=== PATIENT | female | born 1975 | race Caucasian/White ===

== ENCOUNTER → 2016-07-29 | Outpatient (CLI) | payer OTHER ==
[2016-07-29 18:02] LABS: Basophils % (A) 0 %; CH 28.7; CHCM 32.8; Eosinophils # (A) 0.1 k/uL (0-0.7); Eosinophils % (A) 1 %; HCT 44.3 % (34.0-46.0); HDW 2.52; HGB 14.3 gm/dL (11.4-16.0); Luc # (Auto) 0.15; Luc % (Auto) 2; Lymphocytes # (A) 1.8 k/uL (1.0-4.8); Lymphocytes % (A) 19 %; MCH 28.4 pg (25.0-35.0); MCHC 32.3 g/dL (31.0-37.0); MCV 87.9 fL (80.0-100.0); Mean Platelet Volume 7.7; Monocytes # (A) 0.4 k/uL (0-1.0); Monocytes % (A) 4 %; Neutrophils # (A) 7.4 k/uL (1.3-7.7); Neutrophils % (A) 75 %; RBC 5.04 m/uL (3.80-5.40); RDW 12.8 % (11.5-15.5); WBC 9.9 k/uL (3.8-10.6); WBC (Perox) 10.52
[2016-07-29 18:21] LABS: ALT 23 U/L (9-52); AST 28 U/L (14-36); Alkaline Phosphatase 63 U/L (38-126); Anion Gap 13 mmol/L; Blood Urea Nitrogen 17 mg/dL (7-17); Calcium 9.7 mg/dL (8.4-10.2); Carbon Dioxide 23 mmol/L (22-30); Chloride 107 mmol/L (98-107); Glucose 110 mg/dL (74-99); Non-African American GFR(MDRD) >60 (>60 ml/min/1.73 sqM); Potassium 4.2 mmol/L (3.5-5.1); Sodium 143 mmol/L (137-145); Total Bilirubin 0.6 mg/dL (0.2-1.3); Total Protein 7.6 g/dL (6.3-8.2)
== END | disposition home or self-care (01) ==
LOC: MMGSC 15:31
PROVIDERS: ATTEND Family Medicine
DX: R13.10 Dysphagia, unspecified (principal); R16.1 Splenomegaly, not elsewhere classified
CPT/HCPCS: 36415; 80053; 84439; 84443; 85025

== ENCOUNTER → 2017-10-04 | Outpatient (CLI) | payer BC ==
--- NOTE | 2017-10-04 18:09 | CT ---
EXAMINATION TYPE: CT brain wo/w con DATE OF EXAM: 10/04/2017 COMPARISON: NONE HISTORY: RODRIGUEZ WITH FRONTAL SINUS PRESSURE and pain X2 MONTHS CT DLP: 7.3 mGycm Automated Exposure Control for Dose Reduction was Utilized. TECHNIQUE: CT scan of the head is performed without and with IV Contrast, patient injected with 100 m L of Isovue 300. FINDINGS: Noncontrast images show no acute intracranial hemorrhage or midline shift. The ventricles and sulci are within normal limits in size. Castaneda-white matter differentiation is maintained. Postcon trast images show no suspicious enhancing intraparenchymal mass. The globes are intact and the visual ized sinuses are clear. IMPRESSION: No suspicious finding is seen to account for patient's symptoms.
== END | disposition home or self-care (01) ==
LOC: RADCTMAIN 17:13
PROVIDERS: ATTEND Family Medicine
DX: R51 Headache (principal)
CPT/HCPCS: 70470; Q9967

== ENCOUNTER 2019-06-13 04:37 | Emergency (ER) | payer BC ==
--- NOTE | 2019-06-13 05:26 | ED ---
URI HPI - General Chief Complaint: Upper Respiratory Infection Stated Complaint: URI Time Seen by Provider: 06/13/19 05:06 Source: patient, family Mode of arrival: ambulatory Limitations: no limitations - History of Present Illness Initial Comments: This patient is 43-year-old woman who presents to be evaluated for congestion, cough, myalgias, and bilateral rib pains. She states that her symptoms began approximately 4 days ago. She was seen at a clinic and was prescribed Cefdinir on June 11. The patient states that she has been taking this as directed but has not noted any improvement at all. She continues to have frequent cough. The cough does occasionally previous yellow sputum. She has been having bilateral rib pains. MD Complaint: cough -: days(s) Severity: moderate Consistency: constant Improves With: nothing Worsens With: other (Cough) Associated Symptoms: myalgias, nasal congestion, cough, shortness of breath, other (Rib pains) Treatments Prior to Arrival: Ibuprofen, antibiotics - Related Data Home Medications Medication Instructions Recorded Confirmed Omeprazole 20 mg PO DAILY 03/10/16 03/11/16 Previous Rx's Medication Instructions Recorded Ondansetron HCl [Zofran] 4 mg PO Q6HR PRN #10 tab 02/17/16 guaiFENesin-Coden 100-10MG/5ML 5 - 10 ml PO Q6H PRN 3 Days #120 ml 06/13/19 [Robitussin AC] Allergies Allergy/AdvReac Type Severity Reaction Status Date / Time morphine Allergy Rash/Hives Verified 06/13/19 04:46 Sulfa (Sulfonamide Allergy Rash/Hives Verified 06/13/19 04:46 Antibiotics) Review of Systems ROS Statement: Those systems with pertinent positive or pertinent negative responses have been documented in the HPI. ROS Other: All systems not noted in ROS Statement are negative. Constitutional: Denies: fever, chills Respiratory: Reports: cough, dyspnea. Denies: wheezes, hemoptysis Cardiovascular: Reports: chest pain. Denies: palpitations, orthopnea, edema, syncope Gastrointestinal: Denies: abdominal pain, vomiting, diarrhea Genitourinary: Denies: dysuria, hematuria Musculoskeletal: Reports: back pain Skin: Denies: rash Neurological: Denies: headache, weakness Past Medical History Past Medical History: Asthma History of Any Multi-Drug Resistant Organisms: None Reported Past Surgical History: Cholecystectomy, Tonsillectomy Additional Past Surgical History / Comment(s): D&C Past Anesthesia/Blood Transfusion Reactions: No Reported Reaction Past Psychological History: No Psychological Hx Reported Smoking Status: Former smoker Past Alcohol Use History: Occasional Past Drug Use History: None Reported - Past Family History Mother Family Medical History: Cancer General Exam Limitations: no limitations General appearance: alert, in no apparent distress Head exam: Present: atraumatic, normocephalic Eye exam: Present: normal appearance. Absent: scleral icterus, conjunctival injection ENT exam: Present: normal oropharynx Neck exam: Present: normal inspection, full ROM Respiratory exam: Present: chest wall tenderness. Absent: respiratory distress, wheezes, rales, rhonchi, stridor, accessory muscle use Cardiovascular Exam: Present: regular rate, normal rhythm, normal heart sounds. Absent: systolic murmur, diastolic murmur, rubs, gallop GI/Abdominal exam: Present: soft. Absent: distended, tenderness, guarding, rebound, rigid, mass Extremities exam: Present: normal inspection, normal capillary refill. Absent: pedal edema, calf tenderness Back exam: Present: normal inspection. Absent: CVA tenderness (R), CVA tenderness (L) Neurological exam: Present: alert Skin exam: Present: warm, dry, intact, normal color. Absent: rash Course Vital Signs 06/13/19 06/13/19 04:41 05:52 Temperature 99.4 F Pulse Rate 98 Respiratory 18 24 Rate Blood Pressure 130/90 O2 Sat by Pulse 96 Oximetry Medical Decision Making - Lab Data Lab Results 06/13/19 Range/Units 05:50 Influenza Type A RNA Not Detected (Not Detectd) Influenza Type B (PCR) Detected H (Not Detectd) Disposition Clinical Impression: Influenza B Disposition: HOME SELF-CARE Condition: Good Instructions (If sedation given, give patient instructions): Influenza (ED) Prescriptions: guaiFENesin-Coden 100-10MG/5ML [Robitussin AC] 5 - 10 ml PO Q6H PRN 3 Days #120 ml PRN Reason: Cough Is patient prescribed a controlled substance at d/c from ED?: Yes When asked, does pt state using other controlled substances?: No If prescribed controlled substance>3 days was MAPS reviewed?: Prescribed <3 Days If opioid is for acute pain is fill amount 7 days or less?: Yes If Rx opioid, was Start Talking consent form obtained?: Yes Referrals: None,Stated [Primary Care Provider] - 1-2 days
--- NOTE | 2019-06-13 05:34 | XR ---
EXAM: XR Chest, 2 Views CLINICAL HISTORY: Cough congestion chest tightness TECHNIQUE: Frontal and lateral views of the chest. COMPARISON: No relevant prior studies available. FINDINGS: Lungs: No lobar consolidation. The pulmonary vasculature is radiographically unremarkable. Pleural space: Unremarkable. No pneumothorax. No large pleural effusion. Heart: Unremarkable. No cardiomegaly. Mediastinum: Unremarkable. No significant abnormality identified. The trachea is midline. Bones/joints: Unremarkable. IMPRESSION: No focal consolidation or acute cardiopulmonary process identified.
[2019-06-13] MEDS ORDERED: HYDROcodone/APAP 5-325MG 1 EACH TAB PO STA (06:23)
[2019-06-13 06:39] VITALS: BP 143/77; PULSE 71; RESP 20; TEMP 98
== END 2019-06-13 06:38 | disposition home or self-care (01) ==
LOC: EC 04:37
DX: J10.1 Influenza due to other identified influenza virus with other respiratory manifestations (principal); Z87.891 Personal history of nicotine dependence; Z88.2 Allergy status to sulfonamides; Z88.5 Allergy status to narcotic agent; Z79.899 Other long term (current) drug therapy
CPT/HCPCS: 71046; 87502; 99285

== ENCOUNTER 2020-09-11 09:42 | Emergency (ER) | payer BC ==
[2020-09-11 09:58] VITALS: TEMP 99.8
--- NOTE | 2020-09-11 10:55 | XR ---
EXAMINATION TYPE: XR chest 1V portable DATE OF EXAM: 09/11/2020 COMPARISON: 06/13/19 HISTORY: Suspected COVID-19 pneumonia TECHNIQUE: Single frontal view of the chest is obtained. FINDINGS: Patchy perihilar and basilar infiltrates compatible with underlying pneumonia. The cardiac silhouette size is within normal limits. The osseous structures are intact. IMPRESSION: 1. Patchy perihilar and basilar infiltrates compatible with underlying pneumonia.
[2020-09-11 10:56] LABS: Basophils % (A) 1 %; Eosinophils % (A) 0 %; HGB 14.7 gm/dL (11.4-16.0); Lymphocytes # (A) 0.6 k/uL (1.0-4.8); Lymphocytes % (A) 11 %; MCHC 34.9 g/dL (31.0-37.0); MCV 86.1 fL (80.0-100.0); Monocytes # (A) 0.2 k/uL (0-1.0); Monocytes % (A) 3 %; Neutrophils # (A) 4.6 k/uL (1.3-7.7); Neutrophils % (A) 84 %; Platelet Count 174 k/uL (150-450); RBC 4.88 m/uL (3.80-5.40); RDW 13.3 % (11.5-15.5); WBC 5.4 k/uL (3.8-10.6)
[2020-09-11 11:10] LABS: ALT 33 U/L (4-34); AST 46 U/L (14-36); African American GFR (CKD) >90 (>60 ml/min/1.73 sqM); Albumin 4.1 g/dL (3.5-5.0); Alkaline Phosphatase 76 U/L (38-126); Anion Gap 7 mmol/L; Blood Urea Nitrogen 12 mg/dL (7-17); C Reactive Protein 47.3 mg/L (<10.0); Calcium 8.6 mg/dL (8.4-10.2); Carbon Dioxide 29 mmol/L (22-30); Chloride 100 mmol/L (98-107); Glucose 102 mg/dL (74-99); Non-African American GFR(CKD) 85 (>60 ml/min/1.73 sqM); Potassium 4.1 mmol/L (3.5-5.1); Sodium 136 mmol/L (137-145); Total Bilirubin 0.6 mg/dL (0.2-1.3); Total Protein 6.9 g/dL (6.3-8.2)
[2020-09-11] MEDS ORDERED: DEXAMETHASONE SOD PHOSPHATE 4 MG/ML 1 ML VIAL IV STA (12:29)
--- NOTE | 2020-09-11 12:51 | ED ---
General Adult HPI - General Chief complaint: Shortness of Breath Stated complaint: Covid+/SOB/cough Time Seen by Provider: 09/11/20 09:51 Source: family, EMS Mode of arrival: EMS Limitations: no limitations - History of Present Illness Initial comments: 45-year-old female with a past medical history of asthma presents to the emergency room for a chief complaint of shortness of breath. Patient reports that she tested positive for watson virus 7 days ago. Patient states she has had symptoms for about 7 days. States his cough and congestion. It did start to improve however over the past few days the cough worsened. She feels somewhat short of breath. Denies chest pain aside from when coughing or moving. Patient has had fevers on and off.Patient has no other complaints at this time including chest pain, abdominal pain, nausea or vomiting, headache, or visual changes. - Related Data Home Medications Medication Instructions Recorded Confirmed Omeprazole 20 mg PO DAILY 03/10/16 03/11/16 Previous Rx's Medication Instructions Recorded Ondansetron HCl [Zofran] 4 mg PO Q6HR PRN #10 tab 02/17/16 guaiFENesin-Coden 100-10MG/5ML 5 - 10 ml PO Q6H PRN 3 Days #120 ml 06/13/19 [Robitussin AC] Albuterol Inhaler [Ventolin Hfa 2 puff INHALATION RT-QID PRN #1 09/11/20 Inhaler] inhaler Benzonatate [Tessalon Perles] 200 mg PO Q8H PRN #30 capsule 09/11/20 Dexamethasone [Decadron] 6 mg PO DAILY #6 tablet 09/11/20 Allergies Allergy/AdvReac Type Severity Reaction Status Date / Time morphine Allergy Rash/Hives Verified 09/11/20 09:50 Sulfa (Sulfonamide Allergy Rash/Hives Verified 09/11/20 09:50 Antibiotics) Review of Systems ROS Statement: Those systems with pertinent positive or pertinent negative responses have been documented in the HPI. ROS Other: All systems not noted in ROS Statement are negative. Past Medical History Past Medical History: Asthma History of Any Multi-Drug Resistant Organisms: None Reported Past Surgical History: Cholecystectomy, Tonsillectomy Additional Past Surgical History / Comment(s): D&C Past Anesthesia/Blood Transfusion Reactions: No Reported Reaction Past Psychological History: No Psychological Hx Reported Smoking Status: Never smoker Past Alcohol Use History: Occasional Past Drug Use History: None Reported - Past Family History Mother Family Medical History: Cancer General Exam Limitations: no limitations General appearance: alert, in no apparent distress Head exam: Present: atraumatic, normocephalic, normal inspection Eye exam: Present: normal appearance, PERRL, EOMI. Absent: scleral icterus, conjunctival injection, periorbital swelling ENT exam: Present: normal exam, mucous membranes moist Neck exam: Present: normal inspection. Absent: tenderness, meningismus, lymphadenopathy Respiratory exam: Present: normal lung sounds bilaterally, chest wall tenderness. Absent: respiratory distress, wheezes, rales, rhonchi, stridor Cardiovascular Exam: Present: regular rate, normal rhythm, normal heart sounds. Absent: systolic murmur, diastolic murmur, rubs, gallop, clicks GI/Abdominal exam: Present: soft, normal bowel sounds. Absent: distended, tenderness, guarding, rebound, rigid Course Vital Signs 09/11/20 09/11/20 09/11/20 09:50 12:05 12:13 Temperature 99.8 F H Pulse Rate 94 Respiratory 20 Rate Blood Pressure 115/76 O2 Sat by Pulse 96 89 L 94 L Oximetry EKG Findings - EKG Comments: EKG Findings:: Normal sinus rhythm, ventricular rate 91, RI interval 144, QTC 432 Medical Decision Making - Medical Decision Making Vitals are stable. Patient is 94-95% on room air at rest. CBC and CMP are unremarkable. Chest x-ray does show covid Pneumonia. I did ambulate patient and she generally maintained oxygenation in the low 90s. She did desaturate to 89 at one point but never below that. At this time patient is not requiring admission for oxygen. Given her history of asthma we will start patient on steroids. I did discuss return parameters with her for increased shortness of breath requiring her to return to the emergency room. She does not qualify for BAM or resdesmivir. Patient will follow up with primary care and return for any worsening symptoms. I discussed this case with attending Dr. Hall who agrees with this assessment and treatment plan. - Lab Data Result diagrams: 09/11/20 10:30 09/11/20 10:30 Lab Results 09/11/20 09/11/20 Range/Units 10:30 10:30 WBC 5.4 (3.8-10.6) k/uL RBC 4.88 (3.80-5.40) m/uL Hgb 14.7 (11.4-16.0) gm/dL Hct 42.0 (34.0-46.0) % MCV 86.1 (80.0-100.0) fL MCH 30.0 (25.0-35.0) pg MCHC 34.9 (31.0-37.0) g/dL RDW 13.3 (11.5-15.5) % Plt Count 174 (150-450) k/uL MPV 7.0 Neutrophils % 84 % Lymphocytes % 11 % Monocytes % 3 % Eosinophils % 0 % Basophils % 1 % Neutrophils # 4.6 (1.3-7.7) k/uL Lymphocytes # 0.6 L (1.0-4.8) k/uL Monocytes # 0.2 (0-1.0) k/uL Eosinophils # 0.0 (0-0.7) k/uL Basophils # 0.0 (0-0.2) k/uL Sodium 136 L (137-145) mmol/L Potassium 4.1 (3.5-5.1) mmol/L Chloride 100 (98-107) mmol/L Carbon Dioxide 29 (22-30) mmol/L Anion Gap 7 mmol/L BUN 12 (7-17) mg/dL Creatinine 0.84 (0.52-1.04) mg/dL Est GFR (CKD-EPI)AfAm >90 (>60 ml/min/1.73 sqM) Est GFR (CKD-EPI)NonAf 85 (>60 ml/min/1.73 sqM) Glucose 102 H (74-99) mg/dL Calcium 8.6 (8.4-10.2) mg/dL Magnesium 2.0 (1.6-2.3) mg/dL Total Bilirubin 0.6 (0.2-1.3) mg/dL AST 46 H (14-36) U/L ALT 33 (4-34) U/L Alkaline Phosphatase 76 (38-126) U/L C-Reactive Protein 47.3 H (<10.0) mg/L Total Protein 6.9 (6.3-8.2) g/dL Albumin 4.1 (3.5-5.0) g/dL Disposition Clinical Impression: COVID-19, Pneumonia due to COVID-19 virus Disposition: HOME SELF-CARE Condition: Good Instructions (If sedation given, give patient instructions): Coronavirus Disease 2019 (COVID-19) Additional Instructions: Please take medications as directed. You were given IV steroids today so take pills starting tomorrow. Follow-up with primary care. If you become more short of breath you need to return to the emergency room. Prescriptions: Dexamethasone [Decadron] 6 mg PO DAILY #6 tablet Benzonatate [Tessalon Perles] 200 mg PO Q8H PRN #30 capsule PRN Reason: Cough Albuterol Inhaler [Ventolin Hfa Inhaler] 2 puff INHALATION RT-QID PRN #1 inhaler PRN Reason: Shortness Of Breath Is patient prescribed a controlled substance at d/c from ED?: No Referrals: Mendy Diaz DO [Primary Care Provider] - 1-2 days Time of Disposition: 12:58
[2020-09-11 12:58] VITALS: BP 120/72; PULSE 88; RESP 18
== END 2020-09-11 13:46 | disposition home or self-care (01) ==
LOC: EC 09:42
DX: U07.1 COVID-19 (principal); J12.82 Pneumonia due to coronavirus disease 2019; J45.909 Unspecified asthma, uncomplicated
CPT/HCPCS: 36415; 93005; 80053; 83735; 85025; 86140; 71045; 99285; 96374; J1100